=== PATIENT | female | born 1975 ===

== ENCOUNTER 2020-12-21 08:25 | Emergency (ER) | payer OTHER ==
[~2020-12-21] VITALS: Ht 167.6 cm; Wt 68.2 kg
[2020-12-21 10:00] VITALS: BP 124/70
== END 2020-12-21 10:28 | disposition home or self-care (01) ==
LOC: EMS 08:25
DX: F29 Unspecified psychosis not due to a substance or known physiological condition (principal)
CPT/HCPCS: 99285; Z7502